=== PATIENT | male | born 1955 | race Caucasian/White ===

== ENCOUNTER 2018-10-01 05:22 | Emergency (ER) | payer OTHER ==
[~2018-10-01] VITALS: Ht 177.8 cm; Wt 118.2 kg
[2018-10-01 05:30] VITALS: Ht 177.8 cm; Wt 118.2 kg
[2018-10-01] MEDS ORDERED: GLUCOPHAGE500 MG (05:31)
[2018-10-01] MEDS ORDERED: BP MEDS (05:32)
[2018-10-01 05:51] LABS: BASOPHILS 0.1 % (0-2); EOSINOPHILS 2.6 % (0-7); HEMATOCRIT 46.4 % (42.0-54.0); HEMOGLOBIN 15.9 g/dL (13.5-17.5); IMMATURE GRANULOCYTES 0.5 % (0-5); LYMPHOCYTES 8.5 % (15-50); MCHC 34.3 g/dL (31.0-37.0); MCV 87.5 fL (80.0-100.0); MEAN PLATELET VOLUME 11.9 fL (7.4-10.4); MONOCYTES 9.5 % (2-11); NEUTROPHILS 78.8 % (40-80); PLATELET COUNT 291 10x3/uL (130-400); RDW 12.5 % (11.5-14.5); WBC 13.5 10x3/uL (4.8-10.8)
[2018-10-01 06:03] LABS: INR 1.03 (0.85-1.17)
[2018-10-01 06:07] LABS: ALBUMIN 3.2 g/dL (3.4-5.0); ALKALINE PHOSPHATASE 140 U/L (46-116); ALT (SGPT) 43 U/L (10-68); BILIRUBIN - TOTAL 0.34 mg/dL (0.2-1.3); CALC OSMOLALITY 283 mosm/kg (275-300); CALCIUM 8.6 mg/dL (8.5-10.1); CHLORIDE - SERUM 102 mmol/L (98-107); GLUCOSE 268 mg/dL (74-106); POTASSIUM - SERUM 4.4 mmol/L (3.5-5.1); PROTEIN - SERUM 7.1 g/dL (6.4-8.2); SODIUM 137 mmol/L (136-145); UREA NITROGEN 15 mg/dL (7-18); eGFR NON AFRICAN AMERICAN 80 mL/min (90-120)
[2018-10-01 06:27] LABS: CKMB 1.4 U/L (0.0-3.6); CREATINE KINASE 72 UL (21-232); PRO BNP 289 pg/mL (0-125)
[2018-10-01 06:30] LABS: TROPONIN-I 0.063 ng/mL (0.000-0.060)
[2018-10-01] MEDS ORDERED: ALBUTEROL SULF8.5 GM INH (06:46)
[2018-10-01] MEDS ORDERED: LEVAQUIN750 MG PO (06:46)
[2018-10-01 06:57] VITALS: BP 145/96
== END 2018-10-01 06:57 | disposition home or self-care (01) ==
LOC: D.ER 05:22
PROVIDERS: Family Medicine
DX: J40 Bronchitis, not specified as acute or chronic (principal); F17.200 Nicotine dependence, unspecified, uncomplicated; R06.2 Wheezing; R50.9 Fever, unspecified; E11.9 Type 2 diabetes mellitus without complications; I10 Essential (primary) hypertension